=== PATIENT | female | born 1965 | race Caucasian/White ===

== ENCOUNTER 2022-02-07 14:34 | Inpatient (IN) | payer OTHER ==
[~2022-02-07] VITALS: Ht 307.3 cm; Wt 64.7 kg
[2022-02-07 16:24] LABS: INR 1.06 (0.9-1.15); Partial Thromboplastin Time 29.4 sec (23.6-33.0)
[2022-02-07 16:40] LABS: Albumin 3.7 g/dL (3.4-5.0); Calcium 9.2 mg/dL (8.5-10.1); Potassium 3.8 mmol/L (3.5-5.1)
[2022-02-07 16:48] LABS: BUN/Creatinine Ratio 22.4; Bilirubin, Total 0.2 mg/dL (0.2-1.0); CRP High Sensitivity 0.42 mg/dL (< 0.3); Total Protein 6.9 g/dL (6.4-8.2)
[2022-02-07 16:54] LABS: Basophils # (auto) 0.2 10 ^3/uL (0-0.2); Basophils % (auto) 1.8 % (0.0-2.0); Eosinophils # (auto) 0.1 10 ^3/uL (0-0.8); Eosinophils % (auto) 1.3 % (0.0-7.0); Hematocrit 42.3 % (36.0-46.0); Hemoglobin 14.6 g/dL (12.2-16.2); Lymphocytes # (auto) 3.7 10 ^3/uL (0.4-5.4); Mean Corpuscular Hemoglobin 30.1 pg (28.0-32.0); Mean Corpuscular Hgb Conc. 34.4 g/dL (32.0-36.0); Mean Corpuscular Volume 87.5 fL (80.0-100.0); Monocytes # (auto) 0.5 10 ^3/uL (0-1.3); Monocytes % (auto) 4.9 % (0.0-12.0); Neutrophils # (auto) 5.3 10 ^3/uL (1.6-8.6); Nucleated Red Blood Cells % 0.1 %; Red Blood Cells 4.84 10^6/uL (4.0-5.20); Red Cell Distribution Width 13.5 % (11.8-14.3); White Blood Cell 9.8 10^3/uL (4.4-10.8)
[2022-02-07 17:26] LABS: Lactic Acid w/Reflex 2.1 mmol/L (0.4-2.0)
[2022-02-07] MEDS ORDERED: CIPROFLOXACIN 400MG/200ML 200 ML IV ONE (17:30)
[2022-02-07] MEDS ORDERED: DEXTROSE (50%) 50ML SYRG IV PRN (18:15)
[2022-02-07] MEDS ORDERED: HYDROcodone-ACET 10/325MG TAB PO PRN (18:15)
[2022-02-07] MEDS ORDERED: VANCOMYCIN PER PHARMACY 1,000 MG IV SCH (18:45)
[2022-02-07] MEDS ORDERED: MORPHINE SULFATE INJ 2 MG/ml SYRG IV ONE (21:00)
[2022-02-07] MEDS ORDERED: VANCOMYCIN 1GM/250ML 250 ML IV SCH ×2 (22:00)
[2022-02-07] MEDS ORDERED: PIPERACILLIN-TAZOB 3.375GM 100 ML IV SCH (22:00)
[2022-02-07] MEDS: InsuLIN REG 1unit/0.01ml Soln (100units/ml) SC SCH (22:34)
[2022-02-07] MEDS: ACCU-CHEK COMFORT CURVE STRIP VI SCH (22:34)
[2022-02-07] MEDS: MORPHINE SULFATE 4 MG/ML SYR/VIAL IV PRN (23:40)
[2022-02-08] MEDS ORDERED: VANCOMYCIN 1GM/250ML 250 ML IV SCH
[2022-02-08] MEDS: VANCOMYCIN 1GM/250ML 250 ML IV SCH ×2 (01:24→19:57)
[2022-02-08 01:31] VITALS: BP 101/71
[2022-02-08 03:54] LABS: Urine Bacteria NONE SEEN /hpf (None Seen); Urine Blood Negative /uL (Negative); Urine Mucus FEW (None Seen); Urine Specific Gravity 1.027 (1.001-1.035); Urine WBC 13 /hpf (0 - 5)
[2022-02-08] MEDS ORDERED: TRIATAB3 OR (04:13)
[2022-02-08] MEDS ORDERED: OMEP20TA PO (04:13)
[2022-02-08] MEDS ORDERED: ATOR10TA52 PO (04:13)
[2022-02-08] MEDS ORDERED: DULO60CA PO (04:13)
[2022-02-08] MEDS ORDERED: FURO40TA4 PO (04:13)
[2022-02-08] MEDS ORDERED: DOXY-111 PO (04:13)
[2022-02-08] MEDS ORDERED: ENOX100I5 SC (04:13)
[2022-02-08] MEDS ORDERED: METF-370 PO (04:13)
[2022-02-08] MEDS ORDERED: ALEN70TA74 PO (04:13)
[2022-02-08] MEDS ORDERED: MORP30TA PO (04:13)
[2022-02-08] MEDS: MORPHINE SULFATE 4 MG/ML SYR/VIAL IV PRN ×2 (04:28→09:59)
[2022-02-08 05:00] VITALS: BP 102/71
[2022-02-08 06:32] LABS: Anion Gap 8 (5-15); Calcium 8.5 mg/dL (8.5-10.1); Carbon Dioxide 24 mmol/L (21-32); Chloride 110 mmol/L (98-107); Glucose 76 mg/dL (74-106); Potassium 3.8 mmol/L (3.5-5.1); Sodium 142 mmol/L (136-145)
[2022-02-08 06:37] LABS: BUN/Creatinine Ratio 29.2; Blood Urea Nitrogen 19 mg/dL (7-18); GFR African American 121 mL/min; GFR Non-African American 100 mL/min
[2022-02-08] MEDS: PIPERACILLIN-TAZOB 3.375GM 100 ML IV SCH ×2 (06:37→17:06)
[2022-02-08] MEDS: ACCU-CHEK COMFORT CURVE STRIP VI SCH ×4 (06:38→20:56)
[2022-02-08] MEDS: InsuLIN REG 1unit/0.01ml Soln (100units/ml) SC SCH ×4 (06:53→21:57)
[2022-02-08 09:00] VITALS: BP 92/64
[2022-02-08] MEDS: ENOXAPARIN SOD 40 MG/0.4 ML SYRINGE SC SCH (10:03)
[2022-02-08] MEDS: PANTOPRAZOLE 40 MG TAB PO SCH (10:03)
[2022-02-08 13:00] VITALS: BP 90/56
[2022-02-08 17:00] VITALS: BP 100/58
[2022-02-08] MEDS: SODIUM CHLORIDE 0.9% 1,000 ML IV SCH ×2 (17:17→23:45)
[2022-02-08] MEDS: HYDROcodone-ACET 10/325MG TAB PO PRN (20:55)
[2022-02-08 22:00] VITALS: BP 102/58
[2022-02-09] MEDS: PIPERACILLIN-TAZOB 3.375GM 100 ML IV SCH ×3 (00:10→16:58)
[2022-02-09 05:00] VITALS: BP 92/47
[2022-02-09] MEDS: ACCU-CHEK COMFORT CURVE STRIP VI SCH ×4 (06:18→21:53)
[2022-02-09] MEDS: InsuLIN REG 1unit/0.01ml Soln (100units/ml) SC SCH ×4 (06:18→21:53)
[2022-02-09] MEDS: HYDROcodone-ACET 10/325MG TAB PO PRN (06:20)
[2022-02-09 09:00] VITALS: BP 100/53
[2022-02-09] MEDS: PANTOPRAZOLE 40 MG TAB PO SCH (10:29)
[2022-02-09] MEDS: ENOXAPARIN SOD 40 MG/0.4 ML SYRINGE SC SCH (10:30)
[2022-02-09] MEDS: SODIUM CHLORIDE 0.9% 1,000 ML IV SCH ×2 (11:51→15:18)
[2022-02-09] MEDS: OXYCODONE W/ ACETAMINOPHEN 5/325MG TABLET PO PRN ×3 (11:55→20:11)
[2022-02-09 13:00] VITALS: BP 123/78
[2022-02-09] MEDS: VANCOMYCIN 1GM/250ML 250 ML IV SCH (13:50)
[2022-02-09] MEDS: FLUCONAZOLE 200MG/100ML 100 ML IV SCH (15:11)
[2022-02-09 17:00] VITALS: BP 107/73
[2022-02-09 23:21] VITALS: BP 100/58
[2022-02-10] MEDS: OXYCODONE W/ ACETAMINOPHEN 5/325MG TABLET PO PRN ×6 (00:20→22:14)
[2022-02-10] MEDS: PIPERACILLIN-TAZOB 3.375GM 100 ML IV SCH ×2 (00:20→10:47)
[2022-02-10] MEDS: SODIUM CHLORIDE 0.9% 1,000 ML IV SCH ×3 (00:20→18:49)
[2022-02-10] MEDS: InsuLIN REG 1unit/0.01ml Soln (100units/ml) SC SCH ×4 (05:39→22:00)
[2022-02-10] MEDS: ACCU-CHEK COMFORT CURVE STRIP VI SCH ×4 (05:40→22:13)
[2022-02-10 05:41] VITALS: BP_SYST 104; BP_SYST 114; BP_DIAS 56; BP_DIAS 65
[2022-02-10] MEDS: VANCOMYCIN 1GM/250ML 250 ML IV SCH (06:29)
[2022-02-10] MEDS: ENOXAPARIN SOD 40 MG/0.4 ML SYRINGE SC SCH (08:59)
[2022-02-10] MEDS: PANTOPRAZOLE 40 MG TAB PO SCH (08:59)
[2022-02-10 09:00] VITALS: BP 106/67
[2022-02-10] MEDS ORDERED: SULFAMETHOX W/TRIMETH(800/160MG) DS TAB PO SCH (11:45)
[2022-02-10] MEDS ORDERED: DIPHENOXYLATE W/ATROPINE 2.5 MG TAB PO PRN (11:45)
[2022-02-10 13:00] VITALS: BP 109/70
[2022-02-10] MEDS: busPIRone HCL 10 MG TAB PO SCH ×2 (13:16→22:13)
[2022-02-10] MEDS: FLUCONAZOLE 200MG/100ML 100 ML IV SCH (14:28)
[2022-02-10 17:00] VITALS: BP 121/73
[2022-02-10 22:00] VITALS: BP 112/74
[2022-02-10] MEDS: diphenhdrAMINE HCL 50 MG/1 ML VL IV PRN (22:14)
[2022-02-11] MEDS: SODIUM CHLORIDE 0.9% 1,000 ML IV SCH ×4 (00:27→23:45)
[2022-02-11] MEDS: VANCOMYCIN 1GM/250ML 250 ML IV SCH ×2 (01:11→19:11)
[2022-02-11] MEDS: OXYCODONE W/ ACETAMINOPHEN 5/325MG TABLET PO PRN ×5 (02:22→18:37)
[2022-02-11] MEDS: diphenhdrAMINE HCL 50 MG/1 ML VL IV PRN ×5 (02:22→18:37)
[2022-02-11 05:00] VITALS: BP 116/48
[2022-02-11] MEDS: ACCU-CHEK COMFORT CURVE STRIP VI SCH ×4 (06:33→22:14)
[2022-02-11] MEDS: InsuLIN REG 1unit/0.01ml Soln (100units/ml) SC SCH ×4 (06:33→22:00)
[2022-02-11 08:00] VITALS: BP 114/84
[2022-02-11 09:00] VITALS: BP 114/84
[2022-02-11] MEDS: FLUCONAZOLE 200MG/100ML 100 ML IV SCH (09:37)
[2022-02-11] MEDS: rifAMPin 300 MG CAP PO SCH (09:37)
[2022-02-11] MEDS: busPIRone HCL 10 MG TAB PO SCH ×2 (09:37→22:14)
[2022-02-11] MEDS: ENOXAPARIN SOD 40 MG/0.4 ML SYRINGE SC SCH (09:38)
[2022-02-11] MEDS: PANTOPRAZOLE 40 MG TAB PO SCH (09:38)
[2022-02-11 12:30] VITALS: BP 114/74
[2022-02-11 14:25] LABS: Basophils # (auto) 0.1 10 ^3/uL (0-0.2); Basophils % (auto) 1.2 % (0.0-2.0); Eosinophils # (auto) 0.3 10 ^3/uL (0-0.8); Eosinophils % (auto) 3.1 % (0.0-7.0); Hematocrit 36.5 % (36.0-46.0); Hemoglobin 12.3 g/dL (12.2-16.2); Lymphocytes # (auto) 2.9 10 ^3/uL (0.4-5.4); Lymphocytes % (auto) 33.7 % (10.0-50.0); Mean Corpuscular Hgb Conc. 33.8 g/dL (32.0-36.0); Mean Corpuscular Volume 88.8 fL (80.0-100.0); Monocytes # (auto) 0.6 10 ^3/uL (0-1.3); Monocytes % (auto) 6.6 % (0.0-12.0); Neutrophils # (auto) 4.8 10 ^3/uL (1.6-8.6); Neutrophils % (auto) 55.4 % (37.0-80.0); Nucleated Red Blood Cells % 0.1 %; Red Blood Cells 4.11 10^6/uL (4.0-5.20); Red Cell Distribution Width 13.8 % (11.8-14.3); White Blood Cell 8.7 10^3/uL (4.4-10.8)
[2022-02-11 14:44] LABS: Albumin 2.9 g/dL (3.4-5.0); BUN/Creatinine Ratio 10.1; Calcium 8.6 mg/dL (8.5-10.1); Phosphorus 3.8 mg/dL (2.5-4.90); Potassium 3.9 mmol/L (3.5-5.1)
[2022-02-11 17:00] VITALS: BP 132/81
[2022-02-11 22:00] VITALS: BP 124/84
[2022-02-12] MEDS: OXYCODONE W/ ACETAMINOPHEN 5/325MG TABLET PO PRN ×7 (01:45→22:45)
[2022-02-12] MEDS: diphenhdrAMINE HCL 50 MG/1 ML VL IV PRN ×7 (01:47→22:44)
[2022-02-12 05:00] VITALS: BP 124/84
[2022-02-12] MEDS: ACCU-CHEK COMFORT CURVE STRIP VI SCH ×4 (06:33→22:43)
[2022-02-12] MEDS: SODIUM CHLORIDE 0.9% 1,000 ML IV SCH (06:33)
[2022-02-12] MEDS: InsuLIN REG 1unit/0.01ml Soln (100units/ml) SC SCH ×4 (06:33→22:00)
[2022-02-12 08:00] VITALS: BP 116/81
[2022-02-12 09:00] VITALS: BP 116/81
[2022-02-12] MEDS ORDERED: FUROSEMIDE 20 MG/2 ML VIAL IV ONE (09:00)
[2022-02-12] MEDS ORDERED: POTASSIUM CHL 20 Meq TABLET PO ONE (09:00)
[2022-02-12] MEDS: FLUCONAZOLE 200MG/100ML 100 ML IV SCH (10:28)
[2022-02-12] MEDS: PANTOPRAZOLE 40 MG TAB PO SCH (10:29)
[2022-02-12] MEDS: ENOXAPARIN SOD 40 MG/0.4 ML SYRINGE SC SCH (10:29)
[2022-02-12] MEDS: rifAMPin 300 MG CAP PO SCH (10:29)
[2022-02-12] MEDS: busPIRone HCL 10 MG TAB PO SCH ×2 (10:29→22:44)
[2022-02-12 12:46] VITALS: BP 102/77
[2022-02-12] MEDS: VANCOMYCIN 1GM/250ML 250 ML IV SCH (13:00)
[2022-02-12 17:20] VITALS: BP 122/80
[2022-02-12 17:23] LABS: Albumin 3.1 g/dL (3.4-5.0); Calcium 8.8 mg/dL (8.5-10.1); Potassium 3.9 mmol/L (3.5-5.1)
[2022-02-12 17:26] LABS: BUN/Creatinine Ratio 14.1; Bilirubin, Total 0.7 mg/dL (0.2-1.0); Total Protein 6.3 g/dL (6.4-8.2)
[2022-02-12] MEDS ORDERED: VANCOMYCIN 1GM/250ML 250 ML IV SCH (20:00)
[2022-02-12 22:00] VITALS: BP 106/77
[2022-02-13] MEDS: OXYCODONE W/ ACETAMINOPHEN 5/325MG TABLET PO PRN ×3 (02:52→12:12)
[2022-02-13] MEDS: diphenhdrAMINE HCL 50 MG/1 ML VL IV PRN ×5 (02:52→21:10)
[2022-02-13 05:00] VITALS: BP 115/71
[2022-02-13] MEDS: InsuLIN REG 1unit/0.01ml Soln (100units/ml) SC SCH ×4 (06:04→22:00)
[2022-02-13] MEDS: ACCU-CHEK COMFORT CURVE STRIP VI SCH ×4 (06:04→21:11)
[2022-02-13 08:00] VITALS: BP 117/74
[2022-02-13 09:14] VITALS: BP 117/74
[2022-02-13] MEDS: FLUCONAZOLE 200MG/100ML 100 ML IV SCH (10:31)
[2022-02-13] MEDS: PANTOPRAZOLE 40 MG TAB PO SCH (10:31)
[2022-02-13] MEDS: busPIRone HCL 10 MG TAB PO SCH ×2 (10:32→21:10)
[2022-02-13] MEDS: ENOXAPARIN SOD 40 MG/0.4 ML SYRINGE SC SCH (10:32)
[2022-02-13] MEDS: rifAMPin 300 MG CAP PO SCH (10:34)
[2022-02-13] MEDS: VANCOMYCIN 1GM/250ML 250 ML IV SCH (12:11)
[2022-02-13 13:00] VITALS: BP 114/71
[2022-02-13] MEDS: MORPHINE SULF 15mg ER tab PO SCH ×2 (15:38→22:36)
[2022-02-13 17:27] VITALS: BP 116/85
[2022-02-14] MEDS: VANCOMYCIN 1GM/250ML 250 ML IV SCH ×2 (00:15→12:16)
[2022-02-14] MEDS: diphenhdrAMINE HCL 50 MG/1 ML VL IV PRN ×5 (01:19→20:06)
[2022-02-14 05:00] VITALS: BP 126/70
[2022-02-14] MEDS: MORPHINE SULF 15mg ER tab PO SCH ×3 (06:37→21:36)
[2022-02-14] MEDS: ACCU-CHEK COMFORT CURVE STRIP VI SCH ×4 (06:37→21:37)
[2022-02-14] MEDS: InsuLIN REG 1unit/0.01ml Soln (100units/ml) SC SCH ×4 (06:40→21:54)
[2022-02-14 08:00] VITALS: BP 109/67
[2022-02-14 09:00] VITALS: BP 109/67
[2022-02-14] MEDS: busPIRone HCL 10 MG TAB PO SCH ×2 (09:54→21:36)
[2022-02-14] MEDS: FLUCONAZOLE 200MG/100ML 100 ML IV SCH (09:54)
[2022-02-14] MEDS: PANTOPRAZOLE 40 MG TAB PO SCH (09:54)
[2022-02-14] MEDS: ENOXAPARIN SOD 40 MG/0.4 ML SYRINGE SC SCH (09:54)
[2022-02-14] MEDS: rifAMPin 300 MG CAP PO SCH (09:57)
[2022-02-14 13:00] VITALS: BP 124/83
[2022-02-14 17:00] VITALS: BP 125/71
[2022-02-14 22:00] VITALS: BP 122/82
[2022-02-15] MEDS: diphenhdrAMINE HCL 50 MG/1 ML VL IV PRN ×5 (00:13→20:17)
[2022-02-15] MEDS: VANCOMYCIN 1GM/250ML 250 ML IV SCH ×2 (00:13→12:20)
[2022-02-15 05:00] VITALS: BP 114/74
[2022-02-15] MEDS: MORPHINE SULF 15mg ER tab PO SCH ×3 (05:30→21:31)
[2022-02-15] MEDS: ACCU-CHEK COMFORT CURVE STRIP VI SCH ×4 (05:30→21:24)
[2022-02-15] MEDS: InsuLIN REG 1unit/0.01ml Soln (100units/ml) SC SCH ×4 (06:41→21:24)
[2022-02-15 08:30] VITALS: BP 126/78
[2022-02-15] MEDS: FLUCONAZOLE 200MG/100ML 100 ML IV SCH (10:40)
[2022-02-15] MEDS: ENOXAPARIN SOD 40 MG/0.4 ML SYRINGE SC SCH (10:41)
[2022-02-15] MEDS: busPIRone HCL 10 MG TAB PO SCH ×2 (10:41→21:31)
[2022-02-15] MEDS: PANTOPRAZOLE 40 MG TAB PO SCH (10:41)
[2022-02-15] MEDS: rifAMPin 300 MG CAP PO SCH (10:50)
[2022-02-15 13:00] VITALS: BP 123/87
[2022-02-15 17:02] VITALS: BP 121/74
[2022-02-15 22:00] VITALS: BP 119/73
[2022-02-16] MEDS: diphenhdrAMINE HCL 50 MG/1 ML VL IV PRN (00:28)
[2022-02-16 04:51] VITALS: BP 100/73
[2022-02-16] MEDS ORDERED: APIXABAN 5 MG TAB PO ONE (05:15)
[2022-02-16] MEDS ORDERED: diphenhdrAMINE HCL 12.5 MG/5 ML UD PO PRN (05:15)
[2022-02-16] MEDS: MORPHINE SULF 15mg ER tab PO SCH ×2 (05:39→14:00)
[2022-02-16] MEDS: ACCU-CHEK COMFORT CURVE STRIP VI SCH ×3 (05:47→17:00)
[2022-02-16] MEDS: InsuLIN REG 1unit/0.01ml Soln (100units/ml) SC SCH ×3 (05:56→17:00)
[2022-02-16] MEDS ORDERED: VANCOMYCIN 1GM/250ML 250 ML IV SCH ×2 (06:00→12:00)
[2022-02-16 09:00] VITALS: BP 108/71
[2022-02-16] MEDS: ENOXAPARIN SOD 40 MG/0.4 ML SYRINGE SC SCH (10:00)
[2022-02-16] MEDS: FLUCONAZOLE 200MG/100ML 100 ML IV SCH (10:00)
[2022-02-16] MEDS: PANTOPRAZOLE 40 MG TAB PO SCH (10:00)
[2022-02-16] MEDS: rifAMPin 300 MG CAP PO SCH (10:00)
[2022-02-16] MEDS: busPIRone HCL 10 MG TAB PO SCH (10:00)
[2022-02-16] MEDS: diphenhdrAMINE HCL 12.5 MG/5 ML UD PO PRN ×2 (11:39→15:44)
[2022-02-16 13:00] VITALS: BP 124/46
[2022-02-16] MEDS ORDERED: RIFA300C3 PO (16:00)
[2022-02-16 16:45] VITALS: BP 142/73
[2022-02-16 17:00] VITALS: BP 142/73
== END 2022-02-16 18:00 | disposition home or self-care (01) | DRG 153 ==
LOC: EEVIPCON 14:34 → ER 14:34 → OVERFLOW 18:11 → WEST WING 23:57 → TELE-WESTW 02-08 05:43 → WEST WING 02-14 06:29 → OVERFLOW 02-15 10:53 → WEST WING 02-15 11:05
PROVIDERS: ADMIT Internal Medicine; ATTEND Internal Medicine
PROC: 05H933Z Insertion of Infusion Device into Right Brachial Vein, Percutaneous Approach (ICD-10-PCS; 2022-02-11)
PROC: B54MZZA Ultrasonography of Right Upper Extremity Veins, Guidance (ICD-10-PCS; 2022-02-11)
PROC: 05HA33Z Insertion of Infusion Device into Left Brachial Vein, Percutaneous Approach (ICD-10-PCS; principal; 2022-02-16)
PROC: B54NZZA Ultrasonography of Left Upper Extremity Veins, Guidance (ICD-10-PCS; 2022-02-16)
DX: H66.91 Otitis media, unspecified, right ear (principal); N39.0 Urinary tract infection, site not specified; H60.91 Unspecified otitis externa, right ear; F41.9 Anxiety disorder, unspecified; B95.62 Methicillin resistant Staphylococcus aureus infection as the cause of diseases classified elsewhere; E11.9 Type 2 diabetes mellitus without complications; E78.5 Hyperlipidemia, unspecified; G89.4 Chronic pain syndrome; R19.7 Diarrhea, unspecified; I10 Essential (primary) hypertension; K21.9 Gastro-esophageal reflux disease without esophagitis; R60.9 Edema, unspecified; Z20.822 Contact with and (suspected) exposure to COVID-19; J45.909 Unspecified asthma, uncomplicated; M81.0 Age-related osteoporosis without current pathological fracture; Z80.0 Family history of malignant neoplasm of digestive organs; Z86.718 Personal history of other venous thrombosis and embolism; Z86.711 Personal history of pulmonary embolism; Z88.1 Allergy status to other antibiotic agents; Z88.5 Allergy status to narcotic agent; Z88.2 Allergy status to sulfonamides; Z88.8 Allergy status to other drugs, medicaments and biological substances
CPT/HCPCS: 36415; 70480; 80048; 80053; 80069; 80202; 81001; 82565; 82962; 83605; 84484; 85025; 85610; 85652; 85730; 86141; 87040; 87077; 87086; 87186; 87205; 87493; 93005; 93971; 96365; 96375; G0378; J1450; J1815; J2543